=== PATIENT | male | born 1965 | race Caucasian/White ===

== ENCOUNTER 2017-03-17 12:33 | Inpatient (IN) | payer MEDICAID ==
[~2017-03-17] VITALS: Ht 167.6 cm; Wt 57.6 kg
[~2017-03-17 12:33] MED LIST: ACYC400T PO; DEXA4TAB PO; ENOX60IN7 SC; FENT100D2 TD; FENT50DI2 TD; HYDR8TAB PO; LORA-205 PO; METH5TAB2 PO; ONDA4TAB8 PO; POMALYST PO; SULF-169 PO; TAMS0.4C36 PO; TEMA15CA PO
[2017-03-17] MEDS ORDERED: SODIUM CHLORIDE 0.9% 1,000 ML IV ONE ×3 (12:36→12:45)
[2017-03-17] MEDS ORDERED: cefTRIAXone 1GM/50ML D5W 50 ML IV ONE ×2 (12:45→15:00)
[2017-03-17 13:40] LABS: Hematocrit 35.7 % (41.0-53.0); Hemoglobin 11.8 g/dL (13.5-17.5); Mean Corpuscular Hemoglobin 31.5 pg (28.0-32.0); Mean Corpuscular Volume 95.4 fL (80.0-100.0); Mean Platelet Volume 6.6 fL (6.9-10.8); Platelet Count (auto) 394 10^3/uL (140-450); White Blood Cell 2.1 10^3/uL (4.4-10.8)
[2017-03-17 13:46] LABS: Red Cell Distribution Width 23.6 % (11.8-14.3)
[2017-03-17 13:47] LABS: Myelocytes % 0; Promyelocytes % 0; Reactive Lymphocytes 0
[2017-03-17 14:00] LABS: INR 1.05 (0.9-1.15); Lactic Acid w/Reflex 3.6 mmol/L (0.4-2.0); Partial Thromboplastin Time 24.5 sec (22.64-33.71); Prothrombin Time 11.5 sec (9.37-12.3)
[2017-03-17 14:03] LABS: Alkaline Phosphatase 74 U/L (45-117); Anion Gap 11 (5-15); Aspartate Aminotransferase 37 U/L (15-37); BUN/Creatinine Ratio 13.6; Bilirubin, Total 0.3 mg/dL (0.2-1.0); Blood Urea Nitrogen 15 mg/dL (7-18); Calcium 7.7 mg/dL (8.5-10.1); Carbon Dioxide 25 mmol/L (21-32); Chloride 102 mmol/L (98-107); GFR African American 90 mL/min; GFR Non-African American 74 mL/min; Glucose 83 mg/dL (74-106); Potassium 3.4 mmol/L (3.5-5.1); Sodium 138 mmol/L (136-145); Total Protein 6.3 g/dL (6.4-8.2)
[2017-03-17 14:06] LABS: B-Type Natriuretic Peptide 109.61 pg/mL (0-100)
[2017-03-17 14:14] LABS: REFLEX LACTIC ACID YES OR NO YES; Temperature: 23.7 C (20.0-25.0)
[2017-03-17] MEDS ORDERED: PHENYTOIN IV DILANTIN 500 MG in SODIUM CHL 0.9% 100 ML IV ONE (14:30)
[2017-03-17] MEDS ORDERED: HYDROmorphone HCL 2 MG/ML VL IV PRN ×2 (14:30)
[2017-03-17] MEDS ORDERED: DEXAMETHASONE SOD PHOS 10MG/1ML VIAL INJ IV ONE (14:30)
[2017-03-17] MEDS ORDERED: DOXYCYCLINE HYC 100MG/250ML 250 ML IV ONE (14:30)
[2017-03-17] MEDS ORDERED: RIFAMPIN IV ONE (14:30)
[2017-03-17] MEDS ORDERED: SODIUM CHL 0.9% IV ONE (14:30)
[2017-03-17 14:46] LABS: Metamyelocytes % 1; Platelet Estimate Adequate
[2017-03-17 14:47] LABS: Ovalocytes FEW; Stomatocytes Few
[2017-03-17] MEDS ORDERED: VANCOMYCIN PER PHARMACY 0 MG IV SCH (15:00)
[2017-03-17] MEDS ORDERED: VANCOMYCIN 1GM/250ML 250 ML IV ONE (16:00)
[2017-03-17] MEDS: SODIUM CHLORIDE 0.9% 1,000 ML IV SCH (17:23)
[2017-03-17] MEDS: DEXAMETHASONE SOD PHOS 4 MG/1ML SDV INJ IV SCH (18:20)
[2017-03-17] MEDS ORDERED: DOXYCYCLINE HYC 100MG/250ML 250 ML IV SCH (22:00)
[2017-03-17] MEDS ORDERED: SODIUM CHL 0.9% IV SCH (22:00)
[2017-03-17] MEDS ORDERED: RIFAMPIN IV SCH (22:00)
[2017-03-17] MEDS: PHENYTOIN SODIUM 50 MG/ML 2ML VIAL IV SCH (22:17)
[2017-03-17 23:02] VITALS: BP 97/71
[2017-03-17 23:20] VITALS: BP 97/71
[2017-03-18] MEDS: DEXAMETHASONE SOD PHOS 4 MG/1ML SDV INJ IV SCH ×5 (00:10→23:27)
[2017-03-18] MEDS: SODIUM CHLORIDE 0.9% 1,000 ML IV SCH ×3 (03:52→22:01)
[2017-03-18] MEDS ORDERED: VANCOMYCIN 750 MG in D5W 5% 250 ML IV SCH (04:00)
[2017-03-18 04:19] LABS: Urine Bilirubin Negative (Negative); Urine Blood TRACE /uL (Negative); Urine Color Yellow (Yellow); Urine Glucose Normal (Normal); Urine Ketone 1+ (Negative); Urine Mucus FEW (None Seen); Urine Nitrite Negative (Negative); Urine RBC 1 /hpf (0 - 3); Urine Urobilinogen Normal (Negative)
[2017-03-18 05:01] VITALS: BP 126/60
[2017-03-18 05:46] LABS: Calcium 8.1 mg/dL (8.5-10.1); Potassium 4.2 mmol/L (3.5-5.1)
[2017-03-18 05:48] LABS: BUN/Creatinine Ratio 18.3
[2017-03-18] MEDS: PHENYTOIN SODIUM 50 MG/ML 2ML VIAL IV SCH ×3 (05:57→21:43)
[2017-03-18] MEDS: cefTRIAXone 1GM/50ML D5W 50 ML IV SCH (08:57)
[2017-03-18 09:00] VITALS: BP 105/69
[2017-03-18] MEDS: LORazepam 2MG/ML-1ML VIAL IV PRN ×2 (12:08→22:30)
[2017-03-18 13:00] VITALS: BP 135/85
[2017-03-18] MEDS ORDERED: MORPHINE SULFATE 10 MG/5 ML ORAL SOLN PO PRN (14:00)
[2017-03-18] MEDS: HYDROmorphone HCL 2 MG/ML VL IV PRN ×8 (14:27→23:27)
[2017-03-18] MEDS: VANCOMYCIN 750 MG in SODIUM CHL 0.9% 250 ML IV SCH (15:57)
[2017-03-18] MEDS ORDERED: ALBUTEROL SULF 2.5 MG/0.5ML(0.5%) NEB SOLN NEB PRN (21:15)
[2017-03-19] MEDS: LORazepam 2MG/ML-1ML VIAL IV PRN ×3 (00:32→05:29)
[2017-03-19] MEDS: HYDROmorphone HCL 2 MG/ML VL IV PRN ×9 (01:03→21:27)
[2017-03-19] MEDS: VANCOMYCIN 750 MG in SODIUM CHL 0.9% 250 ML IV SCH (05:19)
[2017-03-19] MEDS: SODIUM CHLORIDE 0.9% 1,000 ML IV SCH ×2 (06:12→16:00)
[2017-03-19] MEDS: DEXAMETHASONE SOD PHOS 4 MG/1ML SDV INJ IV SCH ×4 (06:12→23:32)
[2017-03-19] MEDS: PHENYTOIN SODIUM 50 MG/ML 2ML VIAL IV SCH ×3 (06:12→21:27)
[2017-03-19] MEDS: cefTRIAXone 1GM/50ML D5W 50 ML IV SCH (08:51)
[2017-03-19 13:23] VITALS: BP 135/85
[2017-03-19] MEDS: VANCOMYCIN 500 MG in SODIUM CHL 0.9% 100 ML IV SCH (16:35)
[2017-03-20] MEDS: HYDROmorphone HCL 2 MG/ML VL IV PRN ×5 (02:25→15:17)
[2017-03-20] MEDS: VANCOMYCIN 500 MG in SODIUM CHL 0.9% 100 ML IV SCH ×2 (03:39→18:18)
[2017-03-20] MEDS: PHENYTOIN SODIUM 50 MG/ML 2ML VIAL IV SCH ×3 (05:24→21:35)
[2017-03-20] MEDS: DEXAMETHASONE SOD PHOS 4 MG/1ML SDV INJ IV SCH ×5 (05:24→23:59)
[2017-03-20 06:22] LABS: Albumin 2.2 g/dL (3.4-5.0); BUN/Creatinine Ratio 35.1; Potassium 4.1 mmol/L (3.5-5.1)
[2017-03-20 06:34] LABS: Bilirubin, Total 0.3 mg/dL (0.2-1.0)
[2017-03-20] MEDS: LORazepam 2MG/ML-1ML VIAL IV PRN ×4 (09:22→20:42)
[2017-03-20] MEDS: cefTRIAXone 1GM/50ML D5W 50 ML IV SCH (09:22)
[2017-03-20] MEDS: SODIUM CHLORIDE 0.9% 1,000 ML IV SCH ×2 (09:23→21:35)
[2017-03-20] MEDS ORDERED: MORPHINE SULFATE 10 MG/5 ML ORAL SOLN PO ONE (16:15)
[2017-03-20] MEDS ORDERED: MORPHINE SULFATE 10 MG/5 ML ORAL SOLN PO PRN (16:30)
[2017-03-20] MEDS: MORPHINE SULFATE 10 MG/5 ML ORAL SOLN PO SCH ×7 (17:25→23:40)
[2017-03-21] MEDS: MORPHINE SULFATE 10 MG/5 ML ORAL SOLN PO SCH ×6 (00:57→05:00)
[2017-03-21] MEDS: HYDROmorphone HCL 2 MG/ML VL IV PRN ×3 (01:00→05:06)
[2017-03-21] MEDS: LORazepam 2MG/ML-1ML VIAL IV PRN ×3 (02:04→04:00)
[2017-03-21] MEDS ORDERED: VANCOMYCIN 500 MG in D5W 5% 100 ML IV SCH (04:00)
== END 2017-03-21 13:48 | disposition expired | DRG 720 ==
LOC: ER 12:33 → OVERFLOW 12:34 → EAST 20:51
PROVIDERS: ADMIT Internal Medicine; ATTEND Internal Medicine
DX: A41.9 Sepsis, unspecified organism (principal); G93.6 Cerebral edema; G93.41 Metabolic encephalopathy; G93.1 Anoxic brain damage, not elsewhere classified; C90.00 Multiple myeloma not having achieved remission; C79.31 Secondary malignant neoplasm of brain; J32.0 Chronic maxillary sinusitis; G93.89 Other specified disorders of brain; H57.02 Anisocoria; Z66 Do not resuscitate; Z51.5 Encounter for palliative care; F17.210 Nicotine dependence, cigarettes, uncomplicated; N40.0 Benign prostatic hyperplasia without lower urinary tract symptoms; G40.901 Epilepsy, unspecified, not intractable, with status epilepticus; H49.9 Unspecified paralytic strabismus; D63.0 Anemia in neoplastic disease; G89.3 Neoplasm related pain (acute) (chronic); R06.03 Acute respiratory distress; Z86.718 Personal history of other venous thrombosis and embolism; Z92.3 Personal history of irradiation; Z86.711 Personal history of pulmonary embolism
CPT/HCPCS: 36415; 70450; 71010; 80048; 80053; 80185; 80202; 81001; 83605; 83880; 84484; 85007; 85027; 85610; 85730; 87040; 93005; 96361; 96365; 96366; 96367; 96375; J0696; J1100; J7060